=== PATIENT | female | born 1955 | race Caucasian/White ===

== ENCOUNTER 2023-04-04 08:46 | Outpatient (CLI) | payer OTHER | END 2023-04-04 08:49 | disposition home or self-care (01) | LOC: SONOGRAMA 08:46 | PROVIDERS: ATTEND Pathology Anatomic Pathology & Clinical Pathology | DX: D34 Benign neoplasm of thyroid gland (principal); E04.9 Nontoxic goiter, unspecified; E07.9 Disorder of thyroid, unspecified; E04.1 Nontoxic single thyroid nodule ==